=== PATIENT | female | born 1960 ===

== ENCOUNTER 2020-04-13 10:15 | Inpatient (IN) | payer OTHER ==
[~2020-04-13] VITALS: Ht 165.1 cm; Wt 186.0 kg
[2020-04-13] MEDS ORDERED: ATACAND16 MG PO (13:05)
[2020-04-13] MEDS ORDERED: METOPROLOL SUCC50 MG PO (13:06)
[2020-04-13] MEDS ORDERED: INDAPAMIDE1.25 MG PO (13:07)
== END 2020-04-21 17:41 | disposition home or self-care (01) | DRG 821 ==
LOC: O/R 04-20 07:21 → OB/GYN 04-20 07:21 → SURH 04-20 10:15 → OB/GYN 04-20 14:44 → SURH 04-20 19:00 → OB/GYN 04-21 17:41
PROVIDERS: ADMIT Obstetrics & Gynecology Gynecologic Oncology; ATTEND Obstetrics & Gynecology Gynecologic Oncology
PROC: 07BC4ZX Excision of Pelvis Lymphatic, Percutaneous Endoscopic Approach, Diagnostic (ICD-10-PCS; 2020-04-20)
PROC: 0WBH4ZZ Excision of Retroperitoneum, Percutaneous Endoscopic Approach (ICD-10-PCS; principal; 2020-04-20 19:00)
DX: C77.2 Secondary and unspecified malignant neoplasm of intra-abdominal lymph nodes (principal); C56.2 Malignant neoplasm of left ovary

== ENCOUNTER 2023-05-22 08:53 | Day surgery (SDC) | payer OTHER ==
[2023-05-19 10:37] LABS: MEAN CELL VOLUME 91.2 fL (80.00-100.00); MEAN CORPUSCULAR HEMOGLOBIN 30.4 pg (27.00-32.0); MEAN CORPUSCULAR HGB CONC 33.4 g/dl (32.0-36.0); PLATELET COUNT 225 K/uL (150-450); RED BLOOD COUNT 4.28 M/uL (4.00-6.00); RED CELL DISTRIBUTION WIDTH 14.6 % (11.5-14.5)
[2023-05-19 10:58] LABS: PH,URINE 5.5 (5.0-8.0); URINE APPEARANCE Clear; URINE BILIRRUBIN Negative (NEGATIVE); URINE BLOOD Trace; URINE COLOR Yellow; URINE GLUCOSE Negative (NEGATIVE); URINE LEUKOCYTE Small; URINE NITRATE Negative; URINE PROTEIN Negative (NEGATIVE); URINE UROBILINOGEN 0.2 E.U./dl
[2023-05-19 11:03] LABS: INR 0.96; PARTIAL THROMBOPLASTIN TIME 26.5 SECONDS (22.0-34.0); PROTHROMBIN TIME 10.1 SECONDS (9.0-11.5)
[2023-05-19 11:04] LABS: URINE EPITHELIAL CELLS 15.4 uL (0.0-38.8); URINE RBC 2.2 uL (0.0-20.8); URINE WBC 45.7 uL (0.0-23.2)
[2023-05-19 11:21] LABS: ALBUMIN 3.8 gm/dL (3.4-5.0); BILIRUBIN TOTAL 0.19 mg/dL (0.3-1.2); CALCIUM 9.7 mg/dL (8.5-10.1); CREATININE SERUM 0.99 mg/dL (0.55-1.02); GFR 56.47; GLOBULINA 3.9 G/DL (2.4-3.5); POTASSIUM 4.68 mEq/L (3.5-5.1); TOTAL PROTEIN 7.7 gm/dL (6.4-8.2)
[2023-05-19 11:27] LABS: URINE BACTERIA > 9821.5 uL (0.0-1933)
[~2023-05-22 08:53] MED LIST: ATACAND16 MG PO; INDAPAMIDE1.25 MG PO; METOPROLOL SUCC50 MG PO
[2023-05-22] MEDS ORDERED: TRAMADOL HCL50 MG PO (15:43)
== END 2023-05-22 20:35 | disposition home or self-care (01) ==
LOC: CIR.AMB 08:53
PROVIDERS: ATTEND Surgery
DX: K60.3 Anal fistula (principal); K62.89 Other specified diseases of anus and rectum; K62.5 Hemorrhage of anus and rectum; I10 Essential (primary) hypertension; Z88.6 Allergy status to analgesic agent